=== PATIENT | female | born 1965 | race Hispanic/Latino ===

== ENCOUNTER 2017-01-14 16:05 | Emergency (ER) | payer BC ==
[2017-01-14 16:05] VITALS: BMI 35.3
[2017-01-14 16:17] VITALS: BP 129/71; PULSE 74; TEMP 98.9
--- NOTE | 2017-01-14 16:21 | ED PDOC ---
Arrival/HPI - General Chief Complaint: Upper Extremity Problem/Injury Time Seen by Provider: 01/14/17 16:19 Historian: Patient - History of Present Illness Narrative History of Present Illness (Text): 01/14/17 16:30 This 51 yo female presents to this ED c/o right middle finger injury/ laceration x 8 hours. Patient stated a window "came down" on her right middle finger. Patient stated that pressure on her finger caused the tip of finger skin to "burst". Patient left hand dominant. Patient denies other complains. Time/Duration: Other (8 hours) Context: Home Past Medical History - Provider Review Nursing Documentation Reviewed: Yes - Infectious Disease Hx of Infectious Diseases: None - Tetanus Immunization Tetanus Immunization: Unknown - Cardiac Hx Cardiac Disorders: Yes Hx Hypertension: Yes - Pulmonary Hx Respiratory Disorders: No - Neurological Hx Neurological Disorder: No - HEENT Hx HEENT Disorder: No - Renal Hx Renal Disorder: Yes Hx Kidney Stones: Yes - Endocrine/Metabolic Hx Endocrine Disorders: No - Hematological/Oncological Hx Blood Disorders: Yes Hx Anemia: Yes - Integumentary Hx Dermatological Disorder: No - Musculoskeletal/Rheumatological Hx Musculoskeletal Disorders: No Hx Falls: No - Gastrointestinal Hx Gastrointestinal Disorders: No - Genitourinary/Gynecological Hx Genitourinary Disorders: Yes (vaginal bleeding ,prolapsed uetrus,proplased bladder) - Psychiatric Hx Psychophysiologic Disorder: No Hx Substance Use: No - Surgical History Hx Cholecystectomy: Yes Hx Hysterectomy: Yes - Anesthesia Hx Anesthesia: Yes Hx Anesthesia Reactions: No Hx Malignant Hyperthermia: No - Suicidal Assessment Feels Threatened In Home Enviroment: No Family/Social History - Physician Review Nursing Documentation Reviewed: Yes Family/Social History: No Known Family HX Smoking Status: Never Smoked Hx Alcohol Use: No Hx Substance Use: No Hx Substance Use Treatment: No Allergies/Home Meds Allergies/Adverse Reactions: Allergies cayenne pepper fruits Allergy (Verified 01/14/17 16:17) ANAPHYLAXIS raw vegetable Allergy (Verified 01/14/17 16:17) ANAPHYLAXIS Home Medications: Home Meds Medication Instructions Recorded Confirmed Metoprolol Succinate [Toprol XL] 25 mg PO BID 01/14/17 01/14/17 Review of Systems - Review of Systems Constitutional: Normal. absent: Fatigue, Weight Change, Fevers Eyes: Normal ENT: Normal Respiratory: Normal Cardiovascular: Normal Gastrointestinal: Normal Genitourinary Female: Normal Musculoskeletal: Other ((+) right 3rd finger laceration) Skin: Normal Neurological: Normal Endocrine: Normal Hemo/Lymphatic: Normal Psychiatric: Normal Physical Exam Vital Signs Temp Pulse Resp BP Pulse Ox 01/14/17 17:57 16 99 01/14/17 16:15 98.9 F 74 20 129/71 95 01/14/17 16:11 98.9 F 74 20 129/71 95 Temperature: Afebrile Blood Pressure: Normal Pulse: Regular Respiratory Rate: Normal Appearance: Positive for: Well-Appearing, Non-Toxic, Comfortable Pain Distress: None Mental Status: Positive for: Alert and Oriented X 3 - Systems Exam Head: Present: Atraumatic, Normocephalic Pupils: Present: PERRL Extroacular Muscles: Present: EOMI Conjunctiva: Present: Normal Ears: Present: Normal Mouth: Present: Moist Mucous Membranes Neck: Present: Normal Range of Motion Upper Extremity: Present: Normal ROM, NORMAL PULSES, Neurovascularly Intact, Capillary Refill < 2s (right 3rd finger tip laceration), Other ((+) right 3rd f) . No: Cyanosis, Edema Lower Extremity: Present: Normal Inspection, NORMAL PULSES, Normal ROM, Capillary Refill < 2 s. No: Edema, CALF TENDERNESS Neurological: Present: GCS=15, CN II-XII Intact, Speech Normal, Motor Func Grossly Intact, Normal Sensory Function, Normal Cerebellar Funct, Gait Normal Skin: Present: Warm, Dry, Normal Color. No: Rashes Psychiatric: Present: Alert, Oriented x 3 Medical Decision Making ED Course and Treatment: 01/14/17 17:44 Re-evaluation. Patient feels better. Discussed results and plan with patient who expresses understanding. All questions answered and there is agreement with the plan to discharge home with instructions. Patient stable for discharge. Return if symptoms persist or worsen. Re-evaluation Time: 17:44 Reassessment Condition: Re-examined, Improved - RAD Interpretation Narrative RAD Interpretations (Text): 01/14/17 17:44 Finger x-rays: No Fx Radiology Orders: 01/14/17 16:26 HAND RIGHT 3RD DIGIT (FINGER) [RAD] Stat - Medication Orders Current Medication Orders: Discontinued Medications Cephalexin Monohydrate (Keflex) 500 mg PO STAT STA PRN Reason: Protocol Stop: 01/14/17 16:28 Last Admin: 01/14/17 16:52 Dose: 500 mg - Procedure PROCEDURE NOTE (Text): 01/14/17 17:44 PROCEDURE: LACERATION REPAIR Performed by the emergency provider Location: right middle finger Length: 2.2 cm Description: clean wound edges, no foreign bodies Distal CMS: Normal. No deficits. Neurovascularly intact. Anesthesia: Lidocaine 1% without Epi, 2 cc Preparation: The wound was cleaned with NS and [place]. The area was prepped and draped in the usual sterile fashion. Exploration: The wound was explored and no foreign bodies were found. Procedure: The wound was closed with Chromic Gut, interrupted. There was good approximation. In total, 4 sutures were used. Post-Procedure: Good closure and hemostasis. The patient tolerated the procedure well and there were no complications. CSM remains intact. Post procedure dressing applied. Disposition/Present on Arrival - Present on Arrival Any Indicators Present on Arrival: No History of DVT/PE: No History of Uncontrolled Diabetes: No Urinary Catheter: No History of Decub. Ulcer: No History Surgical Site Infection Following: None - Disposition Have Diagnosis and Disposition been Completed?: Yes Diagnosis: Finger laceration, Finger contusion Disposition: HOME/ ROUTINE Disposition Time: 17:48 Patient Plan: Discharge Condition: GOOD Discharge Instructions (ExitCare): Care For Your Absorbable Stitches (ED) Additional Instructions: Call private doctor for wound check in 2-3 days. Keep wound clean and dry for 2 days, then clean wound with soap and water daily. Return to emergency if wound becomes painful, redness, swelling or discharge. Sutures are absorbable, so they will fall off by themselves in 1-2 weeks Prescriptions: Cephalexin [cephalexin] 500 mg PO QID #28 cap Referrals: Sofia Anaya MD [Staff Provider] - Follow up with primary Paulie Barnes MD [Primary Care Provider] - Follow up with primary Toni Draper DO [Staff Provider] - Follow up with primary Forms: Air Visits Discharge (Maltese), WORK NOTE
[2017-01-14 17:58] VITALS: RESP 16; O2SAT 99
--- NOTE | 2017-01-14 18:14 | RAD ---
Right 3rd finger 01/14/2017. History: Trauma with pain. PA view of the hand and 2 cone-down views of the right 3rd finger performed. No prior. Findings: The current study reveals minimal irregularity of the distal tuft distal phalanx 3rd finger only on the obliques view. While this could represent trabecular pattern artifact, the possibility of a subtle avulsion type fracture cannot be excluded. Repeat radiographs 5-10 days recommended as most fractures should become radiographically evident in this timeframe. . Small corticated bony density is seen within the soft tissues just distal to the ulna possibly representing an old unfused ulnar styloid fracture. Remaining osseous structures the appear intact. Impression: The possibility of a tiny avulsion type fracture distal tuft distal phalanx 3rd finger seen only on obliques view cannot be completely excluded. Repeat radiographs in 5-10 days recommended as most fractures should become radiographically evident this timeframe. Findings also suggest old unfused ulnar styloid fracture. Note this report was placed in PA review folder for followup.
--- NOTE | 2017-01-15 15:01 | ED PDOC ---
ED Additional Note - Physician Additional Note Physician Additional Note: pt with possible fracture of finger ; xray was placed into PA review folder. i called patient and left message to call back regarding xrays results; pt is currently on keflex; would only add finger splint and follow up.
== END 2017-01-14 17:58 | disposition home or self-care (01) ==
LOC: ED 16:05
DX: S61.212A Laceration without foreign body of right middle finger without damage to nail, initial encounter (principal); S60.031A Contusion of right middle finger without damage to nail, initial encounter; W22.8XXA Striking against or struck by other objects, initial encounter; Y92.009 Unspecified place in unspecified non-institutional (private) residence as the place of occurrence of the external cause

== ENCOUNTER 2017-10-26 08:44 | Observation (INO) | payer BC ==
--- NOTE | 2017-10-26 10:05 | ED PDOC ---
Arrival/HPI - General Chief Complaint: Palpitations Time Seen by Provider: 10/26/17 09:16 Historian: Patient - History of Present Illness Narrative History of Present Illness (Text): 10/26/17 10:02 52-year-old female with a history of hypertension presents today with a sudden onset of palpitations at 3 AM. Patient states that she woke up from sleep at 3 AM with palpitations. Patient states she had pain in the left side of the jaw radiating into the left arm with some pressure in the anterior chest. Patient states the palpitations come and go. The patient states she feels some numbness in the left upper arm. Patient denies weakness. Patient denies cough. Denies URI symptoms. Patient denies abdominal pain. No nausea or vomiting. Patient states when the palpitations occur she gets pressure in the chest and arm. Time/Duration: Other (3am) Symptom Onset: Sudden Symptom Course: Intermittent Quality: Pressure Severity Level: 2 Past Medical History - Provider Review Nursing Documentation Reviewed: Yes - Travel History Have you recently traveled outside [place] w/in the past 3 mons?: No - Infectious Disease Hx of Infectious Diseases: None - Tetanus Immunization Tetanus Immunization: Unknown - Cardiac Hx Cardiac Disorders: Yes Hx Hypertension: Yes - Pulmonary Hx Respiratory Disorders: No - Neurological Hx Neurological Disorder: No - HEENT Hx HEENT Disorder: No - Renal Hx Renal Disorder: Yes Hx Kidney Stones: Yes - Endocrine/Metabolic Hx Endocrine Disorders: No - Hematological/Oncological Hx Blood Disorders: Yes Hx Anemia: Yes - Integumentary Hx Dermatological Disorder: No - Musculoskeletal/Rheumatological Hx Musculoskeletal Disorders: No Hx Falls: No - Gastrointestinal Hx Gastrointestinal Disorders: No - Genitourinary/Gynecological Hx Genitourinary Disorders: Yes (vaginal bleeding ,prolapsed uetrus,proplased bladder) - Psychiatric Hx Psychophysiologic Disorder: No Hx Substance Use: No - Surgical History Hx Cholecystectomy: Yes Hx Hysterectomy: Yes - Anesthesia Hx Anesthesia: Yes Hx Anesthesia Reactions: No Hx Malignant Hyperthermia: No - Suicidal Assessment Feels Threatened In Home Enviroment: No Family/Social History - Physician Review Nursing Documentation Reviewed: Yes Family/Social History: Unknown Family HX Smoking Status: Never Smoked Hx Alcohol Use: No Hx Substance Use: No Hx Substance Use Treatment: No Allergies/Home Meds Allergies/Adverse Reactions: Allergies cayenne pepper fruits Allergy (Verified 01/14/17 16:17) ANAPHYLAXIS raw vegetable Allergy (Verified 01/14/17 16:17) ANAPHYLAXIS Home Medications: Home Meds Medication Instructions Recorded Confirmed Metoprolol Succinate [Toprol XL] 25 mg PO BID 01/14/17 01/14/17 Review of Systems - Review of Systems Constitutional: absent: Fatigue, Fevers ENT: absent: Sore Throat, Sinus Congestion Respiratory: absent: SOB, Cough Cardiovascular: Chest Pain, Palpitations. absent: Syncope Gastrointestinal: absent: Abdominal Pain, Nausea, Vomiting Genitourinary Female: absent: Dysuria Musculoskeletal: Arthralgias (left arm and left sided jaw pain) Skin: absent: Rash, Pruritis Neurological: absent: Headache, Dizziness Psychiatric: absent: Anxiety, Depression Physical Exam Vital Signs Reviewed: Yes Vital Signs Temp Pulse Resp BP Pulse Ox 10/26/17 12:58 79 147/93 H 10/26/17 12:52 57 L 18 147/93 H 94 L 10/26/17 10:27 57 L 18 154/91 H 96 10/26/17 09:36 98 F 53 L 18 156/91 H 96 Temperature: Afebrile Blood Pressure: Normal Pulse: Regular Respiratory Rate: Normal Appearance: Positive for: Well-Appearing, Non-Toxic, Comfortable Pain Distress: None Mental Status: Positive for: Alert and Oriented X 3 - Systems Exam Head: Present: Atraumatic Mouth: Present: Moist Mucous Membranes. No: Drooling, Trismus Neck: Present: Normal Range of Motion, Trachea Midline Respiratory/Chest: Present: Clear to Auscultation, Good Air Exchange. No: Respiratory Distress, Accessory Muscle Use Cardiovascular: Present: Regular Rate and Rhythm, Normal S1, S2. No: Murmurs, Tachycardic Abdomen: No: Tenderness, Distention, Rebound, Guarding Back: Present: Normal Inspection. No: CVA Tenderness, Midline Tenderness, Paraspinal Tenderness Neurological: Present: GCS=15, Speech Normal Skin: Present: Warm, Dry, Normal Color. No: Rashes Psychiatric: Present: Alert, Oriented x 3 Medical Decision Making ED Course and Treatment: 10/26/17 10:05 pt with chest pain ; cbc; wnl cmp; wnl trop: wnl ekg; sinus rhythm with occasional PVC at 69 bpm, no ST elevations qtc 475 cxr: wnl asa given PO pt reassessment; pt resting comfortably; no distress. vitals stable. case discussed with Dr. Parr; will Admit observational status to Tele for chest pain r/o acs. consult dr. dover impression; chest pain Admit observational status to tele; Dr. parr - Lab Interpretations Lab Results: 10/26/17 10:00 10/26/17 10:00 Lab Results 10/26/17 12:40: Urine Color Yellow, Urine Appearance Clear, Urine pH 7.0, Ur Specific [place] 1.015, Urine Protein Negative, Urine Glucose (UA) Negative, Urine Ketones Negative, Urine Blood Negative, Urine Nitrate Negative, Urine Bilirubin Negative, Urine Urobilinogen 0.2, Ur Leukocyte Esterase Negative 10/26/17 10:00: Influenza Typ A,B (EIA) Negative for flu a/b 10/26/17 10:00: WBC 5.8 D, RBC 4.18, Hgb 12.6, Hct 38.0, MCV 90.9, MCH 30.1, MCHC 33.2, RDW 14.0, Plt Count 226, MPV 9.7, Gran % 66.3, Lymph % (Auto) 22.1, Branch % (Auto) 7.1 H, Eos % (Auto) 4.0, Baso % (Auto) 0.5, Gran # 3.81, Lymph # ( Auto) 1.3, Branch # (Auto) 0.4, Eos # (Auto) 0.2, Baso # (Auto) 0.03 10/26/17 10:00: Sodium 143, Potassium 4.3, Chloride 105, Carbon Dioxide 27, Anion Gap 15, BUN 9, Creatinine 0.7, Est GFR ( Amer) > 60, Est GFR (Non- Af Amer) > 60, Random Glucose 89, Calcium 9.8, Total Bilirubin 0.6, AST 25, ALT 51, Alkaline Phosphatase 109, Lactate Dehydrogenase 450, Total Creatine Kinase 112, Troponin I < 0.01, Total Protein 7.3, Albumin 3.9, Globulin 3.3, Albumin/ Globulin Ratio 1.2 - RAD Interpretation Radiology Orders: 10/26/17 09:35 CHEST PORTABLE [RAD] Stat - Medication Orders Current Medication Orders: Aspirin (Ecotrin) 81 mg PO DAILY LEYDI Metoprolol Succinate (Toprol Xl) 25 mg PO BRK [facility] Last Admin: 02/09/18 12:58 Dose: 25 mg MAR Pulse and Blood Pressure Document 10/26/17 12:58 SRE (Rec: 10/26/17 12:59 SRE [id number]) Pulse Pulse Rate (60-90 beats/min) 79 Blood Pressure Blood Pressure (100/60-150/90 mm Hg) 147/93 Pantoprazole Sodium (Protonix Ec Tab) 40 mg PO 0630 LEYDI Discontinued Medications Aspirin (Aspirin) 325 mg PO STAT STA Stop: 10/26/17 09:37 Last Admin: 10/26/17 10:21 Dose: 325 mg Disposition/Present on Arrival - Present on Arrival Any Indicators Present on Arrival: No History of DVT/PE: No History of Uncontrolled Diabetes: No Urinary Catheter: No History Surgical Site Infection Following: None - Disposition Have Diagnosis and Disposition been Completed?: Yes Diagnosis: Chest pain Disposition: HOSPITALIZED Disposition Time: 11:30 Patient Plan: Observation, Telemetry Condition: FAIR
[2017-10-26 10:21] LABS: BASO # 0.03 K/mm3 (0.0-2.0); BASO % 0.5 % (0.0-3.0); EOS # 0.2 (0.0-0.7); GRAN # 3.81 (1.4-6.5); GRAN % 66.3 % (50.0-68.0); HEMOGLOBIN 12.6 g/dL (12.0-16.0); LYMPH # 1.3 (1.2-3.4); LYMPH % 22.1 % (22.0-35.0); MEAN CELL VOLUME 90.9 fl (80.0-105.0); MEAN CORPUSCULAR HEMOGLOBIN 30.1 pg (25.0-35.0); MEAN CORPUSCULAR HGB CONC 33.2 g/dl (31.0-37.0); MEAN PLATELET VOLUME 9.7 fl (7.0-11.0); MONO # 0.4 (0.1-0.6); MONO % 7.1 % (1.0-6.0); RBC 4.18 10^6/uL (3.5-6.1); WHITE BLOOD COUNT 5.8 10^3/ul (4.5-11.0)
[2017-10-26 10:32] LABS: ALB/GLOB RATIO 1.2 (1.1-1.8); ALBUMIN 3.9 g/dL (3.0-4.8); ALT/SGPT 51 U/L (7-56); AST/SGOT 25 U/L (14-36); BLOOD UREA NITROGEN 9 mg/dL (7-21); CALCIUM 9.8 mg/dL (8.4-10.5); GFR AFRICAN-AMERICAN > 60; GFR NON-AFRICAN AMERICAN > 60
[2017-10-26 10:43] LABS: TROPONIN I < 0.01 ng/mL
--- NOTE | 2017-10-26 11:41 | RAD ---
HISTORY: chest pain COMPARISON: Comparison is made with 11/02/2016 FINDINGS: LUNGS: No evidence of focal infiltrate or consolidation in the lungs. PLEURA: No significant pleural effusion identified, no pneumothorax apparent. CARDIOVASCULAR: Normal. OSSEOUS STRUCTURES: No significant abnormalities. VISUALIZED UPPER ABDOMEN: Normal. OTHER FINDINGS: None. IMPRESSION: No active disease.
[2017-10-26 12:54] LABS: URINE BILIRUBIN NEGATIVE (NEGATIVE); URINE BLOOD NEGATIVE (NEGATIVE); URINE GLUCOSE (UA) NEGATIVE (NEGATIVE); URINE LEUKOCYTE ESTERASE NEGATIVE Leu/uL (NEGATIVE); URINE NITRATE NEGATIVE (NEGATIVE); URINE PROTEIN NEGATIVE mg/dL (<30 mg/dL); URINE UROBILINOGEN 0.2 E.U./dL (<1 E.U./dL)
[2017-10-26 12:57] LABS: URINE APPEARANCE CLEAR (CLEAR); URINE COLOR YELLOW (YELLOW)
[2017-10-26] MEDS: Metoprolol Succinate 25 mg XL Tab PO SCH (12:58)
[2017-10-26 20:30] VITALS: BMI 35.9
[2017-10-26] MEDS ORDERED: Pneumococcal 23-Valent Vaccine IM ONE (20:32)
[2017-10-26] MEDS ORDERED: Influenza Vaccine 60 mcg/0.5 mL SYR (4YR UP) IM ONE (20:32)
[2017-10-26] MEDS: Naproxen 550 mg Tab PO SCH (21:06)
--- NOTE | 2017-10-26 23:36 | CARD ---
APPROVED REPORT EKG Measurement Heart [id number] CT [id number] <Conclusion> Sinus rhythm with occasional premature ventricular complexes Nonspecific ST and T wave abnormality Prolonged QT Abnormal ECG
[2017-10-27 00:45] VITALS: O2SAT 96
[2017-10-27] MEDS ORDERED: Pantoprazole 40 mg EC Tab PO SCH (06:30)
--- NOTE | 2017-10-27 07:08 | HP ---
HISTORY OF PRESENT ILLNESS: The patient is a 52-year-old, has been having intermittent shoulder discomfort. Today, she had chest pain radiating to the left side of the jaw and left shoulder. So, she came to emergency room for further evaluation, does complain of having palpitation. PAST MEDICAL HISTORY: The patient has no significant past medical history except she used to have palpitation. The patient had stress test done in 2017 and that was unremarkable. Her past medical history is significant for hypertension and had uterine dysfunction, had total hysterectomy done by 2-3 years ago, status post cholecystectomy. ALLERGIES: SHE IS ALLERGIC TO RAW VEGETABLES AND PEPPER, BUT NO ALLERGY TO ANY OTHER MEDICATION. SOCIAL HISTORY: She is , lives with her family. She has 3 children. MEDICATIONS AT HOME: She is on metoprolol 25 twice a day, hydrochlorothiazide 12.5 daily. PHYSICAL EXAMINATION GENERAL: She is awake, alert, oriented, communicative. VITAL SIGNS: She is afebrile, pulse 62, respirations 18, blood pressure 161/98. LUNGS: Bilateral good airflow. No rhonchi or crackle. HEART: S1 and S2 audible. ABDOMEN: Soft and nontender. No rebound, no guarding. NEUROLOGIC: She is awake, alert, oriented, able to communicate, moves all extremities. LABORATORY DATA: WBC is 5.8, hemoglobin 12.6, hematocrit 38, platelets of 226,000. Chemistry: Sodium 143, potassium 4.3, chloride 105, CO2 27, BUN 9, creatinine 0.7, blood sugar of 89. LFTs are within normal limit. Flu test is negative. X-ray of the chest is unremarkable. ASSESSMENT AND PLAN 1. Chest pain, rule out coronary artery disease. 2. History of palpitation and hypertension. PLAN: The patient will be placed on observation. We will give aspirin 81 mg daily, started on Protonix and metoprolol and gave her dose of Naprosyn as needed and Dr. Williamson will evaluate the patient. Camila Parr MD
[2017-10-27] MEDS: Metoprolol Succinate 25 mg XL Tab PO SCH (09:50)
[2017-10-27] MEDS: Naproxen 550 mg Tab PO SCH ×2 (09:50→17:12)
--- NOTE | 2017-10-27 12:39 | RAD ---
PROCEDURE: Radiographs of the Left Shoulder HISTORY: Chest Pain. No history of recent/ related trauma provided COMPARISON: No prior. FINDINGS: BONES: Normal. No fracture. JOINTS: Normal. Glenohumeral and acromioclavicular joints preserved. No osteoarthritis. SOFT TISSUES: Normal. OTHER FINDINGS: None. IMPRESSION: Normal radiographs of the left shoulder.
[2017-10-27 12:59] VITALS: RESP 21
[2017-10-27] MEDS ORDERED: Enoxaparin 40 mg Syringe SC SCH (13:45)
[2017-10-27] MEDS ORDERED: MethylPREDNISolone Depo 40 mg/ml Inj IM ONE (14:11)
[2017-10-27] MEDS ORDERED: Bupivacaine 0.5% Inj(30mL) IJ ONE (14:11)
[2017-10-27 14:32] LABS: INR 1.15 (0.93-1.08); PARTIAL THROMBOPLASTIN TIME 29.1 Seconds (25.1-36.5); PROTHROMBIN TIME 13.1 SECONDS (9.4-12.5)
--- NOTE | 2017-10-27 17:04 | RAD ---
PROCEDURE: Cervical Spine Radiographs. HISTORY: Neck pain radiating to left upper extremity. COMPARISON: None. FINDINGS: BONES: Alignment maintained. No fracture. Dens Intact. DISC SPACES: Normal. SOFT TISSUES: Normal. No prevertebral soft tissue swelling. OTHER FINDINGS: None. IMPRESSION: Normal cervical spine radiographs
[2017-10-27 17:30] VITALS: BP 125/92; TEMP 97.9
[2017-10-27 18:37] VITALS: PULSE 55
--- NOTE | 2017-10-27 19:21 | CON ---
DATE: 10/27/2017 NEUROLOGY CONSULTATION CHIEF COMPLAINT: Neck and left shoulder pain. HISTORY OF PRESENT ILLNESS: This is a 52-year-old woman who came in with past medical history of hypertension, urinary dysfunction, history of total hysterectomy who presented with some mild chest pain radiating down to the left side of jaw and left shoulder. A 12-point review of systems are negative. She does have some left shoulder discomfort and some cervical tightness, otherwise can move the shoulder without any difficulty. has numbness of the left arm, but currently doing much better now. No focal weakness of the extremities. A cervical spine x-ray was unremarkable. A shoulder x-ray was also normal. PAST MEDICAL HISTORY: Hypertension, history of hysterectomy. REVIEW OF SYSTEMS: A 14-point review of systems negative as per HPI. ALLERGIES: ALLERGIC TO . NO MEDICATION ALLERGIES. SOCIAL HISTORY: No illicit drug use, smoking or EtOH abuse. MEDICATION: Reviewed by nursing reconciliation sheet. PHYSICAL EXAMINATION: VITAL SIGNS: Temperature of 97.9, pulse rate 56, blood pressure 125/92, respiratory rate 21. GENERAL: Patient is sitting up in bed, in no acute distress. HEENT: Head is atraumatic and normocephalic. PERRLA. Extraocular muscles are intact. NECK: Supple, no JVD. No adenopathy noted. LUNGS: Clear to auscultation. No adventitious sounds. HEART: S1, S2. Normal rate and rhythm. No murmurs, rubs or gallops. ABDOMEN: Soft, nontender, nondistended. Bowel sounds presents. EXTREMITIES: No clubbing, no cyanosis. Peripheral pulses 2+ felt bilaterally. NEUROLOGIC: Patient is alert and oriented to person, place, month and year. Speech is fluent without any errors. Cranial nerves II through XII intact. Motor examination: Moves all extremities equally. Toe is downgoing bilaterally. Sensory examination: Light touch, pinprick, proprioception, and vibration are intact. DTRs are 2+ throughout. Coordination: [id number] intact. Gait is deferred for now. MUSCULOSKELETAL: Patient has some mild cervical tightness. LABORATORY DATA: Sodium is 142, potassium is 4.3, chloride 105, carbon dioxide 15, BUN 9, creatinine 0.7. Random glucose of 89. ASSESSMENT AND PLAN: A 52-year-old woman with history of hypertension who presented with some mild intermittent left chest pain with some left shoulder discomfort and neck discomfort. Shoulder discomfort on the left seems more likely underlying musculoskeletal component rather than anything cardiac. At this time, recommend outpatient physical therapy and follow up as an outpatient and advised stretching exercises. At this time she is clinically stable. Florian Santana MD
--- NOTE | 2017-10-27 22:25 | CON ---
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 The patient does not recall experiencing any chest pain. SOCIAL HISTORY: Nonsmoker, nondrinker. MEDICATIONS: Anaprox 550 mg twice a day, aspirin 81 mg once a day, Protonix 40 mg once a day, Toprol-XL 25 mg once a day. PAST MEDICAL HISTORY: Cholecystectomy. REVIEW OF SYSTEMS: No fever or chills. No dizziness or syncope. PHYSICAL EXAMINATION: GENERAL: The patient is a middle-aged female, who does not appear to be in acute distress. VITAL SIGNS: Blood pressure is 128/94, heart rate 65, temperature 98.1, respirations 21. HEENT: Normocephalic. NECK: No JVD. CHEST: Clear. HEART: S1 and S2, regular. EXTREMITIES: No edema or calf tenderness. LABORATORY DATA: Hemoglobin and hematocrit 12.6 and 38.0, white count 5.8, platelet count 226,000. SMA-7: Sodium 143, potassium 4.3, chloride 105, CO2 of 27, glucose 89, BUN 9, creatinine 0.7. Two sets of troponins are negative. Influenza type A and B serologies negative. Shoulder x-ray was normal study. EKG revealed sinus rhythm with PVCs, heart rate 69, nonspecific Q-wave changes. Chest x-ray was unremarkable except for borderline cardiomegaly. The patient underwent a Myoview stress test in October last year in which she exercised for 9 minutes and 5 seconds on Tigre protocol, achieved 92% of the predicted maximum heart rate without chest pain or ischemic EKG changes and the nuclear imaging was normal. Echocardiographic study was performed in October last year, revealed normal ejection fraction. ASSESSMENT: 1. Atypical chest pain, myocardial infarction ruled out. 2. Rule out pulmonary infarction. 3. Mild sinus bradycardia. 4. Occasional ventricular ectopy. RECOMMENDATIONS: Continue aspirin 81 mg once a day; Toprol-XL 25 mg once a day, hold for heart rate below 60. Obtain serum D-dimer, PT, and PTT. Jonn Hannallah, MD
--- NOTE | 2017-10-28 01:14 | CON ---
DATE: ORTHOPEDIC CONSULT HISTORY OF PRESENT ILLNESS: Patient is a 52-year-old female admitted by Dr. Parr for rule out cardiac problems. She has pain in her left shoulder for approximately 5 days. She does a lot of physical work at home. X-rays of the left shoulder was within normal limits. Examination of the left shoulder shows no signs of tendinitis, impingement, or rotator cuff problems. Has unrestricted range of motion and no night pain. Of significance is, she does have radiculating pain down to the left shoulder and arm, and since she does a lot of work, it is a chance that she is over-extending her neck or irritating the cervical spine with the L5 nerve root involvement. I am going to get an x-ray of the cervical spine. We would like to see if there is any osteophytes. I told the patient, we should get a Neurology consult too, as it looks like the paresthesia could be from a radiculitis of the cervical spine, and we will go from there, but there is no need for a cortisone injection today. I would like to see what the neurologist says about the paresthesias. FINAL DIAGNOSES: Left shoulder pain with radiculopathy. We will get an x-ray of her cervical spine and go from there. We will reevaluate her after that x-ray is done. She might need an MRI, if it shows osteophytes or degenerative disc disease. Toni Draper DO
--- NOTE | 2017-10-28 07:37 | DS ---
HISTORY OF PRESENT ILLNESS: The patient is a 52 years old, seen and examined, lying in bed, seems to be comfortable, complaining of left shoulder pain, has radiating pain starting from left shoulder going to the upper arm. Denies any numbness. No chest pain anymore. PHYSICAL EXAMINATION VITAL SIGNS: She is afebrile. Pulse 64, respirations 20, blood pressure 120/84. LUNGS: Bilateral good airflow. No rhonchi or crackle. HEART: S1 and S2 audible. ABDOMEN: Soft, nontender. No rebound, no guarding. NEUROLOGIC: Patient is awake, alert, oriented, able to communicate, ambulatory. ASSESSMENT AND PLAN 1. Noncardiac chest pain. 2. Left shoulder pain. 3. History of palpitation. PLAN: Allowed for x-ray of left shoulder. Dr. Draper, is going to see the patient and her troponin is repeated. If it is negative, she will be discharged home later on today. She will resume her medications medication as prior to admission. Camila Parr MD
== END 2017-10-27 18:33 | disposition home or self-care (01) ==
LOC: ED 08:44 → ERH 12:48 → 2RSO 21:21
PROVIDERS: ADMIT Internal Medicine; ATTEND Internal Medicine
DX: R07.89 Other chest pain (principal); M25.512 Pain in left shoulder; I49.3 Ventricular premature depolarization; I10 Essential (primary) hypertension; M54.10 Radiculopathy, site unspecified; R00.1 Bradycardia, unspecified; Z91.018 Allergy to other foods; Z90.49 Acquired absence of other specified parts of digestive tract; Z90.710 Acquired absence of both cervix and uterus; Z87.442 Personal history of urinary calculi
CPT/HCPCS: 36415; 71045; 72050; 73030; 80053; 81003; 82550; 83615; 84484; 85025; 85378; 85610; 85730; 87804; 93005; 99285; G0378; J1650